=== PATIENT | female | born 2005 | race Caucasian/White ===

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

== ENCOUNTER 2025-03-20 16:38 | Outpatient (CLI) | payer OTHER, SELFPAY ==
[2025-03-20 16:50] LABS: ESR 3 mm/hr (0-20)
[2025-03-20 16:53] LABS: Abs Immature Grans 0.01 10^3/uL (0.0-0.06); HCT 36.8 % (36.0-46.0); HGB 11.8 g/dL (11.2-15.7); Immature Grans % 0.2 %; MCH 29.6 pg (27.0-33.0); MCHC 32.1 % (32.0-36.0); MCV 92 fL (80-95); MPV 9.7 fL (8.0-11.0); Platelet Count 391 10^3/uL (130-400); RBC 3.99 10^6/uL (3.93-5.22); RDW 12.3 % (11.7-14.6); RDW-SD 41.6 fL; WBC 5.40 10^3/uL (4.4-10.8)
[2025-03-20 17:03] LABS: ALT 61 U/L (14-59); AST 35 U/L (15-37); Albumin 3.5 g/dL (3.4-5.0); Alkaline Phosphatase 64 U/L (46-116); Amylase 67 U/L (25-115); Anion Gap 9.7 mmol/L (3-11); BUN 23 mg/dL (7-18); Bilirubin, Total 0.3 mg/dL (0.2-1.0); CO2 27.3 mmol/L (21.0-32.0); Calcium 8.7 mg/dL (8.5-10.1); Chloride 106 mmol/L (98-107); Estimated GFR 126.90 (mL/min/1.73m2); Glucose 97 mg/dL (74-106); Lipase 31 U/L (<78); Potassium 4.0 mmol/L (3.5-5.1); Sodium 143 mmol/L (136-145); Total Protein 7.2 g/dL (6.4-8.2)
[2025-03-20 17:04] LABS: C-Reactive Protein < 0.50 mg/dL (<or=0.5)
[2025-03-20 17:36] LABS: Vitamin D 25 Total 32 ng/mL (30-100)
== END 2025-03-20 16:39 | disposition home or self-care (01) ==
LOC: LBO 16:38
PROVIDERS: PCP Pediatrics; Visit Provider Internal Medicine
DX: R19.7 Diarrhea, unspecified (principal); R19.8 Other specified symptoms and signs involving the digestive system and abdomen
CPT/HCPCS: 36415; 80053; 82306; 82784; 83516; 83690; 85652; 82150; 85025; 86140